=== PATIENT | male | born 1930 | race Two or more races ===

== ENCOUNTER 2022-02-01 15:55 | Inpatient (IN) | payer OTHER ==
[~2022-02-01] VITALS: Ht 152.4 cm; Wt 76.2 kg
[2022-02-01] MEDS ORDERED: TOPROL XL50 M1 (15:58)
[2022-02-01] MEDS ORDERED: LIPITOR40 M1 (15:58)
[2022-02-01] MEDS ORDERED: TAMS0.4C (15:59)
[2022-02-01] MEDS ORDERED: TERAZOSIN HCL2 M1 (15:59)
--- NOTE | 2022-02-01 16:05 | NUR ---
SE RECIBE PTE ALERTA Y ORIENTADO EN WILL SABIHA ESFERAS, EL CUAL LLEGA EN AMBULANCIA, EN COMPANIA DE FAMILIAR. PTE REFIERE ESPASMO Y DOLOR DE ESPALDA MEDIA POR CAIDA HACE 1 ANO.
--- NOTE | 2022-02-01 17:21 | NUR ---
PTE ES EVALUADO POR SOL.GARCIA SE ORIENTA A PTE Y SE ADMINISTRA MEDICAMENTO EL CULA TOLERA Y SE TRASLADA A REALIZAR CT,PTE ALERTA Y ORIENTADO JUNTO A FAMILIAR.
--- NOTE | 2022-02-01 20:15 | NUR ---
PTE REEVALUADO POR .GARCIA,SE REVISA BULTO QUE PTE REFIERE TENER EN ESPALDA LUCINDA,SE OBSERVA BLANDO A TACTO,ESTA LOS ORIENTA SOBRE ORDENES Y SE ORIENTA APTE Y SE FRIDA MUESTRAS Y SE ENVIAN A LABORATORIO,SE CANALIZA Y COLOCA H/L.PTE EN AREA DE OBSERVACION POR CAMBIOS.
--- NOTE | 2022-02-01 23:17 | NUR ---
SE RECIBE PTE ALERTA Y ORIENTADO X3 EN RICHELLE CON BARANDAS ELEVADAS. PTE EN ESPERA DE CONSULTA CON .
--- NOTE | 2022-02-02 07:08 | NUR ---
SE RECIBE PACIENTE ALERTA EN RICHELLE CON BARANDAS ELEVADAS POR PRECAUSION, REFIERE NO DOLOR AL MOMENTO. PENDIENTE CONSULTA CON MEDICINA INTERNA.
[2022-02-23] MEDS ORDERED: CIPRO500 MG PO (10:21)
== END 2022-02-23 15:11 | disposition home or self-care (01) | DRG 603 ==
LOC: ER 15:55 → MEDI 02-02 10:03
PROVIDERS: ADMIT Internal Medicine; ATTEND Internal Medicine
PROC: BR33ZZZ Magnetic Resonance Imaging (MRI) of Lumbar Disc(s) (ICD-10-PCS; 2022-02-02)
PROC: 30233N1 Transfusion of Nonautologous Red Blood Cells into Peripheral Vein, Percutaneous Approach (ICD-10-PCS; 2022-02-02)
PROC: BR37ZZZ Magnetic Resonance Imaging (MRI) of Thoracic Spine (ICD-10-PCS; 2022-02-03)
PROC: 0W9L3ZZ Drainage of Lower Back, Percutaneous Approach (ICD-10-PCS; principal; 2022-02-07)
PROC: B24BZZZ Ultrasonography of Heart with Aorta (ICD-10-PCS; 2022-02-14)
PROC: BR37ZZZ Magnetic Resonance Imaging (MRI) of Thoracic Spine (ICD-10-PCS; 2022-02-16)
PROC: BR39ZZZ Magnetic Resonance Imaging (MRI) of Lumbar Spine (ICD-10-PCS; 2022-02-17)
DX: L02.212 Cutaneous abscess of back [any part, except buttock and flank] (principal); C34.90 Malignant neoplasm of unspecified part of unspecified bronchus or lung; N39.0 Urinary tract infection, site not specified; D61.818 Other pancytopenia; R78.81 Bacteremia; M48.54XA Collapsed vertebra, not elsewhere classified, thoracic region, initial encounter for fracture; G63 Polyneuropathy in diseases classified elsewhere; D63.0 Anemia in neoplastic disease; M46.48 Discitis, unspecified, sacral and sacrococcygeal region; I25.10 Atherosclerotic heart disease of native coronary artery without angina pectoris; I11.9 Hypertensive heart disease without heart failure; N40.0 Benign prostatic hyperplasia without lower urinary tract symptoms; M48.00 Spinal stenosis, site unspecified; B96.5 Pseudomonas (aeruginosa) (mallei) (pseudomallei) as the cause of diseases classified elsewhere; Z20.822 Contact with and (suspected) exposure to COVID-19; B95.4 Other streptococcus as the cause of diseases classified elsewhere
CPT/HCPCS: 72146; 72148